=== PATIENT | female | born 1965 | race Hispanic/Latino ===

== ENCOUNTER 2018-11-23 07:47 | Day surgery (SDC) | payer OTHER ==
[~2018-11-23 07:47] MED LIST: ANCEF/STERILE WATER 2 GM/20 ML IV NR; LACTATED RINGERS 1,000 ML IV SCH; PROVENTIL IH NR; VERSED IV NR
[2018-11-23] MEDS ORDERED: XYLOCAINE MPF 2% ONE (09:25)
[2018-11-23] MEDS ORDERED: DIPRIVAN 10 MG/ML IV ONE (09:26)
[2018-11-23] MEDS ORDERED: SUBLIMAZE ONE (09:26)
--- NOTE | 2018-11-23 10:26 | Anesthesia Consultation ---
Anesthesia Consult and Med Hx Date of service: 11/23/18 - Airway Anesthetic Teeth Evaluation: Good ROM Head & Neck: Adequate Mental/Hyoid Distance: Adequate Mallampati Class: Class II - Pulmonary Exam CTA: Yes - Cardiac Exam Cardiac Exam: RRR - Pre-Operative Health Status ASA Pre-Surgery Classification: ASA2 Proposed Anesthetic Plan: General - Pulmonary Hx Smoking: Yes (CURRENTLY VAPS) Hx Respiratory Symptoms: Yes (recent URI) Hx Sleep Apnea: No (JIMENA PRE SCREEN LOW RISK.) - Cardiovascular System Hx Hypertension: No Hx Heart Attack/AMI: No Hx Percutaneous Transluminal Coronary Angioplasty (PTCA): No - Central Nervous System Hx Seizures: No CVA: No Hx Back Pain: Yes (FROM STONE) Hx Psychiatric Problems: Yes (anxiety; took usual xanax dose) - Gastrointestinal Hx Gastroesophageal Reflux Disease: No - Endocrine Hx Renal Disease: No Hx Liver Disease: No Hx Insulin Dependent Diabetes: No Hx Non-Insulin Dependent Diabetes: No - Other Systems Hx Obesity: Yes - Additional Comments Anesthesia Medical History Comments: No anesthetic complications.
[2018-11-23] MEDS ORDERED: SUBLIMAZE IV PRN (10:27)
--- NOTE | 2018-11-23 10:27 | Anesthesia Day of Surgery ---
Anesthesia Day of Surgery - Day of Surgery Patient Examined: Yes Patient H&P Reviewed: Yes Patient is NPO: Yes
[2018-11-23] MEDS ORDERED: TRANSDERM-SCOP TD ONE (10:37)
[2018-11-23] MEDS ORDERED: ZOFRAN ONE (10:57)
--- NOTE | 2018-11-23 10:57 | Post Operative Note ---
Date of procedure: 11/23/18 Pre-op diagnosis: l renal stones Post-op diagnosis: same Findings: same Procedure: L ESWL Anesthesia: NORBERT Surgeon: BRY BASS Estimated blood loss: none Pathology: none Condition: stable Disposition: PACU
--- NOTE | 2018-11-23 10:58 | Discharge Summary ---
Short Stay Discharge Plan Activity: other (no strainig ) Weight Bearing Status: Full Weight Bearing Diet: low fat, low cholesterol, low salt Special Instructions: other (inc fluids ) Follow up with: BRY BASS MD [Staff Physician] - 7 Days
[2018-11-23] MEDS ORDERED: NACL 0.9% 1000 ML 1,000 ML ONE (11:14)
[2018-11-23] MEDS ORDERED: TORADOL ONE (11:23)
--- NOTE | 2018-11-23 11:51 | Operative Report ---
PREOPERATIVE DIAGNOSIS: Renal stones, large stones, left kidney. POSTOPERATIVE DIAGNOSIS: Renal stones, large stones, left kidney. PROCEDURE: In situ left lithotripsy. SURGEON: Kevin Rabago MD ANESTHESIA: General. FINDINGS: This is a woman with large number of stones, left kidney. She is moderately overweight. She has some asthma. She now presents for treatment. DESCRIPTION OF PROCEDURE: The patient was brought to lithotripsy and placed on the table. Following induction of anesthesia, the stones were easily localized. They were basically in a linear line, well localized, both the AP and oblique image. Shocks were begun at 1 kV increased it to maximum of 8 kV. The patient tolerated the procedure well. There was some fragmentation, but the stones were quite dense. She will need further procedures to get her stone free in my opinion, but we will see how she does postoperatively. She tolerated the procedure well and brought to recovery in stable condition. JOB# [id number] JOSE ANGEL/AMANUEL
[2018-11-23 12:43] VITALS: BP 125/78
--- NOTE | 2018-11-23 15:21 | Post Anesthesia Evaluation ---
- Post Anesthesia Evaluation Patient Participated: Yes Airway Patent: Yes Stable Respiratory Function: Yes Nausea/Vomiting: No Temp > 96.8F: Yes Pain Manageable: Yes Adequeate Hydration: Yes Anesthesia Complications: No
== END 2018-11-23 13:05 | disposition home or self-care (01) ==
LOC: OR 07:47
PROVIDERS: ATTEND Urology
DX: N20.0 Calculus of kidney (principal); F17.210 Nicotine dependence, cigarettes, uncomplicated; E78.00 Pure hypercholesterolemia, unspecified; F32.9 Major depressive disorder, single episode, unspecified; F41.9 Anxiety disorder, unspecified; Z80.8 Family history of malignant neoplasm of other organs or systems; E66.9 Obesity, unspecified; Z68.32 Body mass index [BMI] 32.0-32.9, adult; Z90.49 Acquired absence of other specified parts of digestive tract; Z79.899 Other long term (current) drug therapy; Z88.8 Allergy status to other drugs, medicaments and biological substances
CPT/HCPCS: 50590; J0690; J1885; J2250; J2405; J2704; J3010; J7030; J7120

== ENCOUNTER 2019-03-28 10:34 | Outpatient (CLI) | payer OTHER ==
[2019-03-28] MEDS ORDERED: LASIX ONE (11:39)
[2019-03-28] MEDS ORDERED: LASIX IV ONE (11:50)
--- NOTE | 2019-03-28 14:19 | Nuclear Medicine Report ---
Nuclear renogram INDICATION: History of bilateral nephrolithiasis COMPARISON: None available Study was performed with intravenous administration of 5 mCi of technetium MAG 3 with subsequent intr avenous administration of 20 mg of Lasix at 22 minutes. The left renal curve shows prompt uptake but broadened extraction phase with time to maximum counts a t 14 minutes. The excretion slope is broadened and flattened and does not change significantly with t he administration of Lasix. There is more rapid excretion in the late stages of the study. The time t o half value was 33 minutes. Right renal curve shows less prompt uptake with flattening of the curve and with a broadened extracti on phase. Time to maximum counts was 16 minutes. Excretion phase is broadened and flattened early. Th ere was not an immediate response to Lasix injection though at 30 minutes and excretion is more rapid beginning at 30 minutes with time to half value of 32 minutes. Split functions for the kidneys were 62.5% for the left and 37.5% for the right. I do not have ERPF calculations available. Images show the delayed excretion noted on the curves but no additional abnormalities. IMPRESSION: Abnormal function is seen from both kidneys but particularly for the right. Excretion cerda s occur and I favor this being a nonobstructive abnormality. I do not have additional imaging studies available for comparison anatomically. Signer Name: Ranjeet Cruz MD Signed: 03/28/2019 2:14 PM Workstation Name: [id number]
[2019-03-29] MEDS ORDERED: LASIX IV ONE (12:14)
== END 2019-03-28 10:35 | disposition home or self-care (01) ==
LOC: NM 10:34
PROVIDERS: ATTEND Urology
DX: N28.89 Other specified disorders of kidney and ureter (principal); E78.00 Pure hypercholesterolemia, unspecified; E66.9 Obesity, unspecified
CPT/HCPCS: 78708; A9562; J1940